=== PATIENT | male | born 1995 | race African-American/Black ===

== ENCOUNTER 2019-12-29 16:27 | Emergency (ER) | payer SELFPAY ==
[2019-12-29 16:35] VITALS: BP 129/82; PULSE 117; TEMP 100.8; BMI 28.9
[2019-12-29] MEDS ORDERED: ACETAMINOPHEN 325 MG TABLET (FP) PO ONE (16:50)
[2019-12-29] MEDS ORDERED: ACETAMINOPHEN 325 MG TABLET (FP) ONE (17:02)
--- NOTE | 2019-12-29 17:26 | PDOC ---
History of Present Illness - General Chief Complaint: Sore Throat Stated Complaint: PAIN/CHILLS Time Seen by Provider: 12/29/19 16:35 History Source: Patient Exam Limitations: Clinical Condition - History of Present Illness Initial Comments: 12/29/19 17:21 Patient with no significant past medical history present with complaint of 3-day history of sore throat, fever, chills and intermittent lower back pain. Patient has not taken anything for symptoms. Denies cough, shortness of breath, diarrhea, constipation, urinary frequency, dysuria, burning with urination. Denies recent travel or sick contacts. Patient also requests STD testing as he was told previous partner had herpes. Denies any other symptoms. Patient has not taken anything for symptoms Is this a multiple visit Asthma Patient?: No Timing/Duration: other (3 days) Past History - Medical History Allergies/Adverse Reactions: Allergies Allergy/AdvReac Type Severity Reaction Status Date / Time No Known Allergies Allergy Verified 12/29/19 16:32 Home Medications: Ambulatory Orders Amoxicillin/Potassium Clav [Augmentin 875-125 Tablet] 1 each PO BID 7 Days #14 tablet 12/29/19 Methylprednisolone [Medrol Dose Jason] 4 mg PO ASDIR #21 tablet 12/29/19 COPD: No - Psycho-Social/Smoking History Smoking History: Never smoked - Substance Abuse Hx (Audit-C & DAST Scrn) How often the patient has a drink containing alcohol: Never Score: In Men: 4 or > Positive; In Women: 3 or > Positive: 0 Screen Result (Pos requires Nsg. Audit-10AR): Negative In the last yr the pt used illegal drug/Rx for NonMed reason: Yes Score: Yes response is considered Positive: 1 Screen Result (Positive result requires Nsg. DAST-10): Positive Review of Systems - Review of Systems Able to Perform ROS?: Yes Is the patient limited Yoruba proficient: No Constitutional: Yes: Chills, Fever. No: Malaise HEENTM: Yes: Symptoms Reported, See HPI, Throat Pain. No: Eye Pain, Blurred Vision, Tearing, Recent change in vision, Double Vision, Cataracts, Ear Pain, Ocular Prothesis, Ear Discharge, Nose Pain, Nose Congestion, Tinnitus, Nose Bleeding, Hearing Loss, Throat Swelling, Mouth Pain, Dental Problems, Difficulty Swallowing, Mouth Swelling, Other Respiratory: No: Symptoms reported, See HPI, Cough, Orthopnea, Shortness of Breath, SOB with Exertion, SOB at Rest, Stridor, Wheezing, Productive cough, Hemoptysis, Other Cardiac (ROS): No: Symptoms Reported, See HPI, Chest Pain, Edema, Irregular Heart Rate, Lightheadedness, Palpitations, Syncope, Chest Tightness, Other ABD/GI: No: Symptoms Reported, Nausea, Vomiting Integumentary: No: Symptoms Reported, Rash Neurological: No: Symptoms reported, Dizziness All Other Systems: Reviewed and Negative *Physical Exam - Vital Signs Last Vital Signs Temp Pulse Resp BP Pulse Ox 100.8 F H 117 H 18 129/82 99 12/29/19 16:33 12/29/19 16:33 12/29/19 16:33 12/29/19 16:33 12/29/19 16:33 - Physical Exam 12/29/19 17:27 GENERAL: Well developed, well nourished. Awake and alert. No acute distress. HEENT: Moderate pharyngeal erythema without exudates. Oropharynx patent. Normocephalic, atraumatic. PERRLA, EOMI. No conjunctival pallor. Sclera are non- icteric. Moist mucous membranes. NECK: Supple. Full ROM. CARDIOVASCULAR: Regular rate and rhythm. No murmurs, rubs, or gallops. Distal pulses are 2+ and symmetric. PULMONARY: No evidence of respiratory distress. Lungs clear to auscultation bilaterally. No wheezing, rales or rhonchi. ABDOMINAL: Soft. Non-tender. Non-distended. No rebound or guarding. No organomegaly. Normoactive bowel sounds. MUSCULOSKELETAL Normal range of motion at all joints. no CVAT b/l EXTREMITIES: No cyanosis. No clubbing. No edema. SKIN: Warm and dry. Normal capillary refill. No rashes. No jaundice. NEUROLOGICAL: Alert, awake, appropriate. Gait is normal without ataxia. PSYCHIATRIC: Cooperative. Good eye contact. Appropriate mood General Appearance: Yes: Nourished, Appropriately Dressed. No: Apparent Distress ED Treatment Course - Medications Given in the ED: ED Medications Discontinued Medications Generic Name Dose Route Start Last Admin Trade Name Freq PRN Reason Stop Dose Admin Acetaminophen 650 mg 12/29/19 16:50 12/29/19 17:04 Tylenol - PO 12/29/19 16:51 650 mg ONCE ONE Administration Medical Decision Making - Medical Decision Making 12/29/19 17:23 Patient with no significant past medical history present with complaint of 3-day history of sore throat, fever, chills and intermittent lower back pain. Patient has not taken anything for symptoms. Denies cough, shortness of breath, diarrhea, constipation, urinary frequency, dysuria, burning with urination. Den ies recent travel or sick contacts. Patient also requests STD testing as he was told previous partner had herpes. Denies any other symptoms. Patient has not taken anything for symptoms Clinical exam unremarkable except for fever of 100.8 F and moderate pharyngeal erythema without exudates. Lungs clear to auscultation bilateral. Patient in no acute distress. No back pain elicited on exam. No abdominal tenderness or CVA tenderness. Tylenol 650 mg p.o. ordered for fever. Rapid strep and COVID test ordered. Urine gonorrhea and chlamydia tests ordered as per patient request. Treat based on rapid strep result 12/29/19 18:46 Rapid strep negative however given fever with complaint of sore throat and pharyngeal erythema, will treat on Augmentin antibiotics pending throat culture results. Patient advised to increase fluid intake and follow-up with PCP and will be contacted with COVID and GC lab result. Patient stable for discharge Discharge - Discharge Information Problems reviewed: Yes Clinical Impression/Diagnosis: Possible exposure to STD Pharyngitis Qualifiers: Pharyngitis/tonsillitis etiology: infectious mononucleosis Qualified Code(s): B27.90 - Infectious mononucleosis, unspecified without complication Fever Qualifiers: Fever type: unspecified Qualified Code(s): R50.9 - Fever, unspecified Condition: Stable Disposition: HOME - Admission No - Additional Discharge Information Prescriptions: Amoxicillin/Potassium Clav [Augmentin 875-125 Tablet] 1 each PO BID 7 Days #14 tablet Methylprednisolone [Medrol Dose Jason] 4 mg PO ASDIR #21 tablet - Follow up/Referral - Patient Discharge Instructions Patient Printed Discharge Instructions: DI for Pharyngitis/Tonsillopharyngitis -- Adult Additional Instructions: Take prescribed medication as prescribed. Increase fluid intake. Alternate between Tylenol Motrin as needed for fever. Follow-up with your primary care. You will be contacted in a few days with lab results - Post Discharge Activity
[2019-12-29 19:14] LABS: THROAT:GRP A STREP ANTIGEN Negative (Negative)
== END 2019-12-29 18:27 | disposition home or self-care (01) ==
LOC: JERFT 16:27
DX: Z20.2 Contact with and (suspected) exposure to infections with a predominantly sexual mode of transmission (principal); B27.90 Infectious mononucleosis, unspecified without complication; R50.9 Fever, unspecified
CPT/HCPCS: 36415; 87070; 87077; 87086; 87491; 87591; 87880; 99284-25; U0003